=== PATIENT | male | born 1975 | race Caucasian/White ===

== ENCOUNTER 2022-10-21 23:16 | Emergency (ER) | payer MEDICAID ==
[2022-10-21] MEDS ORDERED: buPROPion 150 MG Tab.ER PO ONE (23:56)
[2022-10-21] MEDS ORDERED: OLANZapine 5 MG Tab PO ONE (23:56)
[2022-10-22] MEDS ORDERED: OLANZapine 5 MG Tab ONE ×2 (00:13→00:16)
== END 2022-10-22 00:31 | disposition home or self-care (01) ==
LOC: JP.ED 23:16
DX: F31.9 Bipolar disorder, unspecified (principal); F19.959 Other psychoactive substance use, unspecified with psychoactive substance-induced psychotic disorder, unspecified; F17.210 Nicotine dependence, cigarettes, uncomplicated; Z91.041 Radiographic dye allergy status; Z88.8 Allergy status to other drugs, medicaments and biological substances
CPT/HCPCS: 99284; A9270-GY

== ENCOUNTER 2024-03-03 06:33 | Day surgery (SDC) | payer MEDICARE ==
[2024-03-03] MEDS: Lactated Ringers 1,000 ML IV SCH (06:52)
[2024-03-03] MEDS ORDERED: Midazolam 1 MG/ML 2 ML SDV ONE (07:22)
[2024-03-03] MEDS ORDERED: fentaNYL 50 MCG/ML SDV ONE (07:22)
[2024-03-03] MEDS ORDERED: Propofol 200 MG/20 ML SDV ONE (07:23)
== END 2024-03-03 09:00 | disposition home or self-care (01) ==
LOC: JP.SDS 06:33
PROVIDERS: ATTEND Surgery
DX: Z12.11 Encounter for screening for malignant neoplasm of colon (principal); D12.2 Benign neoplasm of ascending colon; D12.5 Benign neoplasm of sigmoid colon; F41.9 Anxiety disorder, unspecified; F31.9 Bipolar disorder, unspecified; F17.200 Nicotine dependence, unspecified, uncomplicated
CPT/HCPCS: 45380; 45385; J2250; J2704; J3010; J7120